=== PATIENT | female | born 1995 | race Caucasian/White ===

== ENCOUNTER → 2017-06-08 | Outpatient (REF) | payer OTHER ==
[~2017-06-08] MED LIST: ACET120S; IBUP100S2 PO; XULA1DIS; birth control patch TOP
== END ==
LOC: M SFHCLERA 13:11
PROVIDERS: ATTEND Nurse Practitioner Family
DX: L29.8 Other pruritus (principal); R30.0 Dysuria

== ENCOUNTER 2017-06-24 10:06 | Day surgery (SDC) | payer OTHER ==
[~2017-06-24] VITALS: Ht 167.6 cm; Wt 54.4 kg
[~2017-06-24 10:06] MED LIST changes: -ACET120S; -IBUP100S2 PO; -XULA1DIS
[2017-06-24] MEDS ORDERED: LR 1,000 ML IV ONE (10:15)
[2017-06-24] MEDS ORDERED: EMLA CREAM 5GM (LIDOCAINE/PRILOCAINE) As Ordered ONE (10:20)
[2017-06-24 10:48] LABS: CONTROL LINE UCG INT CTR LINE PRESENT
[2017-06-24] MEDS ORDERED: BUPIVACAINE/EPIN 0.5% 30 ML VIAL As Ordered ONE (11:17)
[2017-06-24] MEDS ORDERED: LIDOCAINE W/EPINEPHRINE 1% 20ML VIAL As Ordered ONE (11:17)
--- NOTE | 2017-06-24 12:11 | RO ---
DATE OF PROCEDURE: 06/24/2017 PREPROCEDURE DIAGNOSIS: Chronic tonsillitis. POSTPROCEDURE DIAGNOSIS: Chronic tonsillitis. OPERATIVE PROCEDURE: Tonsillectomy. SURGEON: Nickolas Santos MD TELEMARKETING AGENT: ANESTHESIA: DESCRIPTION OF PROCEDURE: Under general anesthesia with the patient intubated, a Alford-Walt mouth gag was inserted. The tonsil area was infiltrated with lidocaine, epinephrine and Marcaine. Using a Coblator setting of 6 and 4, the tonsil was dissected free from its bed on both sides. The base and apex and other areas were cauterized using a setting 4 on the Coblator. There is no bleeding. A nasogastric tube was passed to suction the upper esophagus. Patient tolerated the procedure well and was extubated and transferred to the recovery room in excellent condition.
[2017-06-24] MEDS ORDERED: LR 1,000 ML IV SCH ×2 (12:15→12:30)
[2017-06-24] MEDS ORDERED: ACETAMINOPH W/CODEINE #3 TAB UD PO PRN (12:15)
[2017-06-24] MEDS ORDERED: MIDAZOLAM INJ 2 MG/2 ML VIAL (J2250) As Ordered ONE (12:16)
[2017-06-24] MEDS ORDERED: fentaNYL 100 MCG/2 ML INJECTION (J3010) As Ordered ONE (12:16)
[2017-06-24] MEDS ORDERED: MEPERIDINE INJ 25 MG/ML VIAL (J2175) As Ordered ONE (12:20)
[2017-06-24] MEDS ORDERED: MEPERIDINE INJ 25 MG/ML VIAL (J2175) IV PRN (12:30)
[2017-06-24] MEDS ORDERED: ONDANSETRON 4MG/2ML VIAL (J2405) IV PRN (12:30)
[2017-06-24] MEDS ORDERED: fentaNYL 100 MCG/2 ML INJECTION (J3010) IV PRN (12:30)
[2017-06-24] MEDS ORDERED: ONDANSETRON 4MG/2ML VIAL (J2405) As Ordered ONE (12:38)
[2017-06-24] MEDS ORDERED: dexameTHASONE 4 MG/ML 1ML VIAL (J1100) As Ordered ONE (12:38)
[2017-06-24] MEDS ORDERED: LIDOCAINE 2% INJ 100 MG/5 ML SDV (FOR ANES.) As Ordered ONE (12:39)
[2017-06-24] MEDS ORDERED: PROPOFOL 200 MG/20 ML VIAL As Ordered ONE (12:39)
[2017-06-24 13:30] VITALS: BP 120/55
== END 2017-06-24 13:41 | disposition home or self-care (01) ==
LOC: M SDC 10:06
PROVIDERS: ATTEND Otolaryngology
DX: J35.01 Chronic tonsillitis (principal)
CPT/HCPCS: 42826; 84703; 88302; J1100; J2175; J2250; J2405; J3010

== ENCOUNTER 2017-07-01 12:07 | Emergency (ER) | payer OTHER ==
[~2017-07-01] VITALS: Ht 167.6 cm; Wt 54.5 kg
[2017-07-01 12:07] VITALS: BP 109/60
[2017-07-01] MEDS ORDERED: XULA1DIS (12:15)
[2017-07-01] MEDS ORDERED: ACET120S (12:15)
[2017-07-01] MEDS ORDERED: LIDOCAINE VISCOUS 2% SOLN 15ML UDC SSP ONE (13:00)
[2017-07-01] MEDS ORDERED: IBUP100S2 PO (13:07)
== END 2017-07-01 13:17 | disposition home or self-care (01) ==
LOC: M ED 12:07
DX: Z90.89 Acquired absence of other organs (principal); R07.0 Pain in throat; Z79.3 Long term (current) use of hormonal contraceptives

== ENCOUNTER → 2018-12-05 | Outpatient (REF) | payer OTHER ==
[~2018-12-05] MED LIST changes: +ACET120S; +IBUP100S2 PO; +XULA1DIS
[2018-12-06 14:02] LABS: CHLAMYDIA DNA AMPLIFICATION NEGATIVE (NEGATIVE); GC DNA AMPLIFICATION NEGATIVE (NEGATIVE)
== END ==
LOC: M SFHCLERA 20:11
PROVIDERS: ATTEND Physician Assistant
DX: N39.0 Urinary tract infection, site not specified (principal); R30.0 Dysuria